=== PATIENT | female | born 1975 | race Caucasian/White ===

== ENCOUNTER 2018-07-20 10:27 | Emergency (ER) | payer MEDICAID ==
[~2018-07-20] VITALS: Ht 175.3 cm; Wt 118.7 kg
[2018-07-20] MEDS ORDERED: ACETAMINOPHEN 500 MG TABLET PO ONE (11:30)
[2018-07-20] MEDS ORDERED: SODIUM CHLORIDE 0.9% 1,000ML IVBOLUS ONE (11:30)
[2018-07-20] MEDS ORDERED: KETOROLAC 60 MG/2 ML IV ONE (11:30)
[2018-07-20] MEDS ORDERED: SODIUM CHLORIDE FLUSH 10ML SYR IVF ONE (11:30)
[2018-07-20] MEDS ORDERED: ACETAMINOPHEN 500 MG TABLET ONE (11:35)
[2018-07-20] MEDS ORDERED: KETOROLAC 30 MG/1 ML ONE (11:35)
[2018-07-20 11:40] LABS: BASOPHILS # (AUTO) 0.02 x10^3/uL (0-0.1); BASOPHILS % (AUTO) 0 % (0-1); EOSINOPHILS # (AUTO) 0.21 x10^3/uL (0-0.4); EOSINOPHILS % (AUTO) 4 % (1-7); LYMPHOCYTES # (AUTO) 0.61 x10^3/uL (1-3.4); LYMPHOCYTES % (AUTO) 12 % (22-44); MD NO; MEAN CORPUSCULAR HEMOGLOBIN 28.5 pg (27.0-34.8); MEAN CORPUSCULAR HGB CONC 34.1 g/dL (32.4-35.8); MEAN CORPUSCULAR VOLUME 83.7 fL (80-100); MEAN PLATELET VOLUME 9.7 fL (7.4-10.4); MONOCYTES # (AUTO) 0.45 x10^3/uL (0.2-0.8); MONOCYTES % (AUTO) 9 % (2-9); NEUTROPHILS # (AUTO) 3.78 x10^3/uL (1.8-6.8); NEUTROPHILS % (AUTO) 75 % (42-75); PLATELET COUNT 116 x10^3/uL (130-400); RED BLOOD COUNT 4.78 x10^6/uL (3.82-5.3); RED CELL DISTRIBUTION WIDTH 17.6 % (9.6-15.2)
[2018-07-20 11:52] LABS: ALBUMIN 3.8 g/dL (3.4-5.0); ANION GAP 12 mmol/L (5-15); CALCIUM 9.3 mg/dL (8.5-10.1); CHLORIDE 107 mmol/L (98-107)
[2018-07-20 11:58] LABS: ALANINE AMINOTRANSFERASE 44 U/L (12-78); ALKALINE PHOSPHATASE 69 U/L (45-117); CREATININE 0.69 mg/dL (0.55-1.02); TOTAL PROTEIN 7.1 g/dL (6.4-8.2)
[2018-07-20 13:57] LABS: CULTURE INDICATED? YES; MICROSCOPIC INDICATED
[2018-07-20] MEDS ORDERED: LIDOCAINE 2%, 20ML SQ ONE (14:00)
[2018-07-20] MEDS ORDERED: LIDOCAINE-MPF 2%, 2ML ONE (14:06)
[2018-07-20 14:23] VITALS: BP 137/63
[2018-07-20] MEDS ORDERED: NADO20TA PO (14:30)
[2018-07-20] MEDS ORDERED: LEVO25TA4 PO (14:30)
[2018-07-20] MEDS ORDERED: CYAN100014 PO (14:30)
[2018-07-20] MEDS ORDERED: URSO300C27 PO (14:30)
[2018-07-20] MEDS ORDERED: LORA1TAB PO (14:30)
[2018-07-20] MEDS ORDERED: LISI2.5T PO (14:30)
[2018-07-20] MEDS ORDERED: OMEP10CA4 PO (14:30)
[2018-07-20] MEDS ORDERED: CALCIUM PO (14:30)
[2018-07-20] MEDS ORDERED: POTA99TA24 PO (14:30)
[2018-07-20] MEDS ORDERED: MULT-204 PO (14:30)
[2018-07-20] MEDS ORDERED: BIOT800T PO (14:30)
[2018-07-20] MEDS ORDERED: TRIM300C20 PO (14:30)
== END 2018-07-20 14:51 | disposition home or self-care (01) ==
LOC: ED 11:35
DX: L02.31 Cutaneous abscess of buttock (principal); R50.9 Fever, unspecified; I10 Essential (primary) hypertension; E11.9 Type 2 diabetes mellitus without complications; E03.9 Hypothyroidism, unspecified
CPT/HCPCS: 10060; 36415; 71045; 80053; 81001; 83605; 84145; 84703; 85025; 87040; 87086; 96361; 96374; 99285; J1885; J7030

== ENCOUNTER 2018-08-29 13:33 | Emergency (ER) | payer MEDICAID ==
[~2018-08-29] VITALS: Ht 175.3 cm; Wt 108.9 kg
[~2018-08-29 13:33] MED LIST: BIOT800T PO; CALCIUM PO; CYAN100014 PO; LEVO25TA4 PO; LISI2.5T PO; LORA1TAB PO; MULT-204 PO; NADO20TA PO; OMEP10CA4 PO; POTA99TA24 PO; TRIM300C20 PO; URSO300C27 PO
[2018-08-29 14:11] VITALS: BP 144/90
[2018-08-29] MEDS ORDERED: SODIUM CHLORIDE 0.9% 1,000 ML IV ONE (14:16)
[2018-08-29 14:51] LABS: BASOPHILS # (AUTO) 0.02 x10^3/uL (0-0.1); BASOPHILS % (AUTO) 0 % (0-1); EOSINOPHILS # (AUTO) 0.16 x10^3/uL (0-0.4); EOSINOPHILS % (AUTO) 3 % (1-7); LYMPHOCYTES # (AUTO) 0.82 x10^3/uL (1-3.4); LYMPHOCYTES % (AUTO) 16 % (22-44); MD NO; MEAN CORPUSCULAR HEMOGLOBIN 28.3 pg (27.0-34.8); MEAN CORPUSCULAR HGB CONC 33.9 g/dL (32.4-35.8); MEAN CORPUSCULAR VOLUME 83.6 fL (80-100); MEAN PLATELET VOLUME 9.7 fL (7.4-10.4); MONOCYTES # (AUTO) 0.46 x10^3/uL (0.2-0.8); MONOCYTES % (AUTO) 9 % (2-9); NEUTROPHILS # (AUTO) 3.73 x10^3/uL (1.8-6.8); NEUTROPHILS % (AUTO) 72 % (42-75); PLATELET COUNT 131 x10^3/uL (130-400); RED BLOOD COUNT 4.69 x10^6/uL (3.82-5.3); RED CELL DISTRIBUTION WIDTH 17.5 % (9.6-15.2)
[2018-08-29 15:02] LABS: ANION GAP 6 mmol/L (5-15); CALCIUM 9.9 mg/dL (8.5-10.1); CHLORIDE 112 mmol/L (98-107)
[2018-08-29 15:06] LABS: ALANINE AMINOTRANSFERASE 37 U/L (12-78); ALKALINE PHOSPHATASE 57 U/L (45-117); BILIRUBIN,TOTAL 1.6 mg/dL (0.2-1.0); CREATININE 0.66 mg/dL (0.55-1.02); TOTAL PROTEIN 7.1 g/dL (6.4-8.2)
[2018-08-29] MEDS ORDERED: KETOROLAC 30 MG/1 ML ONE (15:51)
[2018-08-29 15:59] LABS: CULTURE INDICATED? YES; MICROSCOPIC INDICATED
[2018-08-29] MEDS ORDERED: KETOROLAC 30 MG/1 ML IVPush ONE (16:00)
== END 2018-08-29 18:07 | disposition home or self-care (01) ==
LOC: ED 14:35
DX: R51 Headache (principal); R10.31 Right lower quadrant pain; R10.32 Left lower quadrant pain; M54.9 Dorsalgia, unspecified; I10 Essential (primary) hypertension; E11.9 Type 2 diabetes mellitus without complications
CPT/HCPCS: 36415; 74022; 80053; 81001; 82962; 83690; 85025; 87086; 96374; 99285; J1885; J7030

== ENCOUNTER 2018-09-21 09:22 | Emergency (ER) | payer MEDICAID ==
[~2018-09-21] VITALS: Ht 175.3 cm; Wt 110.0 kg
[2018-09-21] MEDS ORDERED: KETOROLAC 30 MG/1 ML IM ONE (10:00)
[2018-09-21 10:14] LABS: BASOPHILS # (AUTO) 0.01 x10^3/uL (0-0.1); BASOPHILS % (AUTO) 0 % (0-1); EOSINOPHILS % (AUTO) 5 % (1-7); LYMPHOCYTES # (AUTO) 1.19 x10^3/uL (1-3.4); LYMPHOCYTES % (AUTO) 29 % (22-44); MD NO; MEAN CORPUSCULAR HGB CONC 34.3 g/dL (32.4-35.8); MEAN CORPUSCULAR VOLUME 84.6 fL (80-100); MONOCYTES # (AUTO) 0.35 x10^3/uL (0.2-0.8); MONOCYTES % (AUTO) 9 % (2-9); NEUTROPHILS # (AUTO) 2.33 x10^3/uL (1.8-6.8); NEUTROPHILS % (AUTO) 57 % (42-75); PLATELET COUNT 123 x10^3/uL (130-400); RED BLOOD COUNT 4.58 x10^6/uL (3.82-5.3); RED CELL DISTRIBUTION WIDTH 16.9 % (9.6-15.2)
[2018-09-21] MEDS ORDERED: KETOROLAC 30 MG/1 ML ONE (10:16)
[2018-09-21 10:26] LABS: ALBUMIN 3.7 g/dL (3.4-5.0); ANION GAP 5 mmol/L (5-15); CALCIUM 9.3 mg/dL (8.5-10.1); CHLORIDE 110 mmol/L (98-107); CREATININE 0.63 mg/dL (0.55-1.02)
[2018-09-21 11:07] VITALS: BP 168/82
== END 2018-09-21 11:09 | disposition home or self-care (01) ==
LOC: ED 10:50
DX: G89.29 Other chronic pain (principal); M25.552 Pain in left hip; M25.551 Pain in right hip; M25.512 Pain in left shoulder; M25.511 Pain in right shoulder; E03.9 Hypothyroidism, unspecified; I10 Essential (primary) hypertension; E11.9 Type 2 diabetes mellitus without complications
CPT/HCPCS: 36415; 80048; 82040; 85025; 96372; 99284; J1885

== ENCOUNTER 2018-10-10 19:03 | Emergency (ER) | payer MEDICAID ==
[~2018-10-10] VITALS: Ht 175.3 cm; Wt 106.4 kg
[2018-10-10] MEDS ORDERED: METOCLOPRAMIDE 5 MG/ML, 2ML ONE (19:29)
[2018-10-10] MEDS ORDERED: DIPHENHYDRAMINE 50 MG/ML, 1ML ONE (19:29)
[2018-10-10] MEDS ORDERED: KETOROLAC 30 MG/1 ML IVPush ONE (19:30)
[2018-10-10] MEDS ORDERED: SODIUM CHLORIDE FLUSH 10ML SYR IVF ONE (19:30)
[2018-10-10] MEDS ORDERED: DIPHENHYDRAMINE 50 MG/ML, 1ML IVPush ONE (19:30)
[2018-10-10] MEDS ORDERED: METOCLOPRAMIDE 5 MG/ML, 2ML IVPush ONE (19:30)
[2018-10-10 20:17] LABS: BASOPHILS # (AUTO) 0.07 x10^3/uL (0-0.1); BASOPHILS % (AUTO) 1 % (0-1); EOSINOPHILS # (AUTO) 0.24 x10^3/uL (0-0.4); EOSINOPHILS % (AUTO) 4 % (1-7); LYMPHOCYTES # (AUTO) 1.74 x10^3/uL (1-3.4); LYMPHOCYTES % (AUTO) 27 % (22-44); MD NO; MEAN CORPUSCULAR HEMOGLOBIN 28.3 pg (27.0-34.8); MEAN CORPUSCULAR HGB CONC 33.7 g/dL (32.4-35.8); MEAN CORPUSCULAR VOLUME 83.8 fL (80-100); MONOCYTES # (AUTO) 0.46 x10^3/uL (0.2-0.8); MONOCYTES % (AUTO) 7 % (2-9); NEUTROPHILS # (AUTO) 3.89 x10^3/uL (1.8-6.8); NEUTROPHILS % (AUTO) 61 % (42-75); PLATELET COUNT 175 x10^3/uL (130-400); RED BLOOD COUNT 5.04 x10^6/uL (3.82-5.3); RED CELL DISTRIBUTION WIDTH 16.2 % (9.6-15.2)
[2018-10-10 20:22] LABS: ALANINE AMINOTRANSFERASE 29 U/L (12-78); ALBUMIN 4.2 g/dL (3.4-5.0); ANION GAP 10 mmol/L (5-15); CALCIUM 9.8 mg/dL (8.5-10.1); CHLORIDE 109 mmol/L (98-107); CREATININE 0.74 mg/dL (0.55-1.02)
[2018-10-10 20:27] LABS: ALKALINE PHOSPHATASE 70 U/L (45-117); BILIRUBIN,TOTAL 1.6 mg/dL (0.2-1.0); TOTAL PROTEIN 7.5 g/dL (6.4-8.2)
[2018-10-10] MEDS ORDERED: MORPHINE SULFATE 4 MG/ML, 1ML ONE (20:49)
[2018-10-10 20:51] VITALS: BP 157/94
[2018-10-10] MEDS ORDERED: MORPHINE SULFATE 4 MG/ML, 1ML IVPush PRN (21:00)
== END 2018-10-10 22:18 | disposition home or self-care (01) ==
LOC: ED 21:11
DX: G43.101 Migraine with aura, not intractable, with status migrainosus (principal); E03.9 Hypothyroidism, unspecified; E11.9 Type 2 diabetes mellitus without complications; I10 Essential (primary) hypertension; I45.81 Long QT syndrome
CPT/HCPCS: 36415; 80053; 84703; 85025; 96374; 96375; 99283; J1200; J2765

== ENCOUNTER 2021-03-23 23:01 | Emergency (ER) | payer MEDICAID ==
[~2021-03-23] VITALS: Ht 175.3 cm; Wt 103.6 kg
[~2021-03-23 23:01] MED LIST changes: -NADO20TA PO; +NADO20TA2 PO; -OMEP10CA4 PO; +OMEP10CA5 PO
--- NOTE | 2021-03-24 00:07 | NUR ---
PT. TO ROOM FROM LOBBY AT THIS TIME.
--- NOTE | 2021-03-24 00:19 | NUR ---
PT. TO ED WITH C/O BILAT LEG NUMBNESS/TINGLING/PAIN GETTING INCREASINGLY WORSE RECENTLY. PT. STATES IS A DIABETIC AND IS "ALREADY TAKING THE MAX DOSE OF LYRICA"; STATES IT ISN'T HELPING AND NOW PAIN IS STARTING IN HER ARMS WELL. BLOOD GLUCOSE ON PT. METER 97. PT. PROVIDED WITH WARM BLANKET AND REQUESTED PT. TO CHANGE INTO GOWN. AWAITING PROVIDER XIAO.
[2021-03-24] MEDS ORDERED: ONDANSETRON ODT 4 MG ONE (00:49)
[2021-03-24] MEDS ORDERED: HYDROmorphone 1 MG/ML, 1ML INJ ONE (00:50)
[2021-03-24] MEDS ORDERED: OXYcodone/APAP 10/325MG TABLET ONE (00:50)
[2021-03-24] MEDS ORDERED: HYDROmorphone 1 MG/ML, 1ML INJ IM ONE (01:00)
[2021-03-24] MEDS ORDERED: ONDANSETRON ODT 4 MG PO ONE (01:00)
[2021-03-24] MEDS ORDERED: OXYcodone/APAP 10/325MG TABLET PO ONE (01:00)
--- NOTE | 2021-03-24 01:01 | NUR ---
PT. MEDICATED PER JAN. PT. STATES MOTHER IS GOING TO BE COMING TO PICK HER UP FOR SAFE D/C. PT. HAS APPT. WITH PAIN IN [place] LATER TODAY AND IS HERE FROM [place]. PT. REPORTS SHE HAS HAD IM DILUADID AND PERCOCET BEFORE WITH NO REACTIONS.
[2021-03-24 01:21] VITALS: BP 167/98
== END 2021-03-24 01:22 | disposition home or self-care (01) ==
LOC: ED 03-24 00:40
DX: E11.40 Type 2 diabetes mellitus with diabetic neuropathy, unspecified (principal); M79.604 Pain in right leg; M79.605 Pain in left leg; G89.29 Other chronic pain; I10 Essential (primary) hypertension; G43.909 Migraine, unspecified, not intractable, without status migrainosus
CPT/HCPCS: 96372; 99283; J1170

== ENCOUNTER 2021-04-22 17:30 | Emergency (ER) | payer MEDICAID ==
[~2021-04-22] VITALS: Ht 175.3 cm; Wt 105.0 kg
--- NOTE | 2021-04-22 21:29 | NUR ---
PT PRESENTS TO ED WITH BILATERAL LEG PAIN. PT ALSO STATES SHE IS A BRITTLE DIABETIC AND HAS NOT BEEN ABLE TO CHECK HER BLOOD SUGAR. PT STATES SHE DRIVES UP TO [place], 5 HOURS, ONCE A MONTH TO SEE HER DOCTOR. PT IN GOWN ON GURNEY AND PLACED ON CONTINUING MONITORING.
[2021-04-22] MEDS ORDERED: OXYcodone 5 MG/5 ML ORAL.SOL UDC PO PRN (22:00)
--- NOTE | 2021-04-22 22:00 | NUR ---
PT RESTING ON GURNEY, DENIES NEEDS AT THIS TIME.
[2021-04-22] MEDS ORDERED: OXYcodone 5 MG/5 ML ORAL.SOL UDC ONE ×2 (22:04→23:52)
--- NOTE | 2021-04-22 22:30 | NUR ---
PAIN MEDICATION GIVEN
[2021-04-22 22:54] LABS: BASOPHILS % (AUTO) 0 % (0-1); EOSINOPHILS % (AUTO) 4 % (1-7); LYMPHOCYTES % (AUTO) 36 % (22-44); MEAN CORPUSCULAR HEMOGLOBIN 24.8 pg (27.0-34.8); MEAN CORPUSCULAR HGB CONC 32.6 g/dL (32.4-35.8); MEAN PLATELET VOLUME 8.8 fL (7.4-10.4); MONOCYTES % (AUTO) 11 % (2-9); NEUTROPHILS % (AUTO) 49 % (42-75); PLATELET COUNT 117 x10^3/uL (130-400); RED BLOOD COUNT 4.12 x10^6/uL (3.82-5.3); RED CELL DISTRIBUTION WIDTH 18.8 % (9.6-15.2)
[2021-04-22 23:04] LABS: ALBUMIN 3.6 g/dL (3.4-5.0); ANION GAP 6 mmol/L (5-15); CALCIUM 8.7 mg/dL (8.5-10.1); CHLORIDE 113 mmol/L (98-107)
--- NOTE | 2021-04-22 23:30 | NUR ---
PT REQUESTING MORE PAIN MEDICATION. CALVES ARE THROBBING.
--- NOTE | 2021-04-22 23:45 | NUR ---
PAIN MEDS GIVEN, PT RESTING COMFORTABLY ON GURNEY, DENIES NEEDS AT THIS TIME.
[2021-04-23] MEDS ORDERED: OXYcodone 5 MG/5 ML ORAL.SOL UDC PO ONE
[2021-04-23 00:10] VITALS: BP 152/93
--- NOTE | 2021-04-23 00:14 | NUR ---
Patient given discharge instructions and they have confirmed that they understand the instructions. Patient ambulatory with steady gait.
== END 2021-04-23 00:15 | disposition home or self-care (01) ==
LOC: ED 21:07
DX: E11.40 Type 2 diabetes mellitus with diabetic neuropathy, unspecified (principal); D50.9 Iron deficiency anemia, unspecified; G89.29 Other chronic pain; I10 Essential (primary) hypertension; E03.9 Hypothyroidism, unspecified
CPT/HCPCS: 36415; 80048; 82040; 85025; 99284